=== PATIENT | female | born 1960 | race Caucasian/White ===

== ENCOUNTER 2018-05-27 08:33 | Outpatient (REF) | payer MEDICARE, MEDICAID, SELFPAY ==
[2018-05-27 21:11] LABS: Anion Gap 8.6 mmol/L (3-11); BUN 9 mg/dL (7-18); CO2 28.4 mmol/L (21.0-32.0); CREATININE 0.82 mg/dL (0.55-1.02); Calcium 9.2 mg/dL (8.5-10.1); Chloride 103 mmol/L (98-107); Cholesterol 184 mg/dL (50-200); Glucose 91 mg/dL (70-100); HDL Cholesterol 66 mg/dL (40-60); LDL CHOLESTEROL 105 mg/dL (<100); Potassium 3.8 mmol/L (3.5-5.1); Sodium 140 mmol/L (136-145); TSH (W/Ref FT4) 1.78 uIU/mL (0.358-3.74); Triglyceride 46 mg/dL (30-150)
== END 2018-05-27 08:34 ==
LOC: NCHCN 08:33
PROVIDERS: PCP Specialist/Technologist Athletic Trainer; Visit Provider Specialist/Technologist Athletic Trainer
DX: I10 Essential (primary) hypertension (principal); E03.9 Hypothyroidism, unspecified; E78.2 Mixed hyperlipidemia
CPT/HCPCS: 80048; 80061; 83721; 84443

== ENCOUNTER 2018-12-08 00:27 | Outpatient (CLI) | payer MEDICARE, MEDICAID, SELFPAY ==
--- NOTE | 2018-12-08 08:37 | DI.MAMMO_ITS ---
SYMPTOMS/DIAGNOSIS: SCREENING, Z12.31, PREVENTATIVE CARE, Z00.00 MAMMOGRAMS: Mammograms were interpreted according to the usual protocol including computer analysis with CAD system, tomosynthesis and C view imaging. The breast tissue is of moderate radiodensity. There is no evidence of a mass. There are no suspicious calcifications and there has been no significant interval change when compared with prior images. SUMMARY: No evidence of malignancy, category 1. Yearly screening mammography is recommended. Breast density category B. SA ASSESSMENT OF FINDINGS: Negative. Category 1. Patient will receive a letter notifying them of these results. BI-RADS category B. There are scattered areas of fibroglandular density.
== END 2018-12-08 00:47 ==
PROVIDERS: PCP Specialist/Technologist Athletic Trainer; Visit Provider Specialist/Technologist Athletic Trainer
DX: Z12.31 Encounter for screening mammogram for malignant neoplasm of breast (principal)
CPT/HCPCS: 77063; 77067

== ENCOUNTER 2018-12-10 10:57 | Outpatient (REF) | payer MEDICARE, MEDICAID, SELFPAY ==
--- NOTE | 2018-12-10 10:00 | PAPFT_PTH ---
PATIENT: Rea Martines LOC: [facility] U#:[id number] AGE/SX: 58/F ROOM: RE12/10/[address]: Tay Alaniz MD : 1960 BED: DIS: 12/10/2018 SPEC #: [id number] RECD: 12/10/18 13:01 STATUS: SHARATH REAmy #: [id number] KYARA: 12/10/18 10:[address]: Tay Alaniz DEPT: [facility] Cytology RECD BY: Karolyn Acosta ENTERED: 12/10/18 13:07 SP TYPE: PAPFT OTHR DR: Reji Hung Tissues: 1 - CX/ENDOCX FOR PAP SMEARS Procedures: PAP THIN PREP/UVM Screening HPV DNA PROBE Comments: [id number]
== END 2018-12-10 11:17 ==
LOC: LBN 10:57
PROVIDERS: PCP Specialist/Technologist Athletic Trainer; Visit Provider Obstetrics & Gynecology
DX: Z12.4 Encounter for screening for malignant neoplasm of cervix (principal); Z11.51 Encounter for screening for human papillomavirus (HPV)
CPT/HCPCS: 88142; 87624

== ENCOUNTER 2019-01-03 13:52 | Outpatient (REF) | payer MEDICARE, MEDICAID, SELFPAY ==
--- NOTE | 2019-01-03 13:35 | ENDO_PTH ---
PATIENT: Rea Martines LOC: [facility] U#:[id number] AGE/SX: 58/F ROOM: RE01/03/[address]: Tay Alaniz MD : 1960 BED: DIS: 01/03/2019 SPEC #: [id number] RECD: 01/03/19 17:15 STATUS: SHARATH REAmy #: [id number] KYARA: 01/03/19 13:[address]: Tay Alaniz DEPT: Surgical Specimen RECD BY: Nohemy Castillo ENTERED: 01/03/19 17:15 SP TYPE: Endo OTHR DR: Reji Hung Tissues: 1 - ENDOCERVICAL BX/CURRETTE Procedures: GROSS AND MICRO LEVEL 4 P16 IPEX Comments: [id number]
== END 2019-01-03 14:12 ==
LOC: LBN 13:52
PROVIDERS: PCP Specialist/Technologist Athletic Trainer; Visit Provider Obstetrics & Gynecology
DX: N87.0 Mild cervical dysplasia (principal); R87.610 Atypical squamous cells of undetermined significance on cytologic smear of cervix (ASC-US)
CPT/HCPCS: 88305; 88342

== ENCOUNTER 2019-04-26 15:07 | Outpatient (REF) | payer MEDICARE, MEDICAID, SELFPAY | END 2019-04-26 15:27 | LOC: NCHCN 15:07 | PROVIDERS: PCP Specialist/Technologist Athletic Trainer; Visit Provider Family Medicine | DX: R35.0 Frequency of micturition (principal) | CPT/HCPCS: 87077; 87086; 87186 ==

== ENCOUNTER 2019-05-19 09:14 | Outpatient (REF) | payer MEDICARE, MEDICAID, SELFPAY ==
[2019-05-19 21:29] LABS: Anion Gap 12.7 mmol/L (3-11); BUN 12 mg/dL (7-18); CO2 23.3 mmol/L (21.0-32.0); CREATININE 0.64 mg/dL (0.55-1.02); Calcium 9.3 mg/dL (8.5-10.1); Calculated LDL 136 mg/dL; Chloride 105 mmol/L (98-107); Cholesterol 207 mg/dL (50-200); Glucose 91 mg/dL (70-100); HDL Cholesterol 59 mg/dL (40-60); Potassium 3.9 mmol/L (3.5-5.1); Sodium 141 mmol/L (136-145); Triglyceride 62 mg/dL (30-150)
[2019-05-23 15:52] LABS: Hepatitis C Ab w Rflx HCV PCR Negative (NEGAT)
== END 2019-05-19 09:34 ==
LOC: NCHCN 09:14
PROVIDERS: PCP Specialist/Technologist Athletic Trainer; Visit Provider Specialist/Technologist Athletic Trainer
DX: I10 Essential (primary) hypertension (principal); E78.2 Mixed hyperlipidemia; Z11.59 Encounter for screening for other viral diseases; Z79.899 Other long term (current) drug therapy
CPT/HCPCS: 80048; 80061; 83721; 86803

== ENCOUNTER 2019-12-28 10:28 | Outpatient (CLI) | payer MEDICARE, MEDICAID, SELFPAY ==
[2019-12-31 10:20] LABS: SARS-CoV-2 RNA Undetected (Undetected); SARS-CoV-2 Specimen Source Nasopharynx
== END 2019-12-28 10:48 ==
PROVIDERS: PCP Specialist/Technologist Athletic Trainer; Visit Provider Physician Assistant
DX: J06.9 Acute upper respiratory infection, unspecified (principal)
CPT/HCPCS: U0003

== ENCOUNTER 2020-04-27 13:37 | Outpatient (CLI) | payer MEDICARE, MEDICAID, SELFPAY ==
--- NOTE | 2020-04-27 14:07 | DI.RAD_ITS ---
EXAM: XR FOOT LT COMPLETE CLINICAL HISTORY: LT FOOT PAIN, M79.672. TECHNIQUE: 2D digital imaging was performed. COMPARISON: No exams were available for comparison FINDINGS: BONES: No acute fracture is present. No bony destructive lesion is seen. There are mild degenerative changes. JOINTS: No dislocation present. SOFT TISSUE: Normal. IMPRESSION: Unremarkable radiographs of the left foot. DATA REPOSITORY: RADIATION DOSE DELIVERED:
== END 2020-04-27 13:57 ==
PROVIDERS: PCP Specialist/Technologist Athletic Trainer; Visit Provider Physician Assistant Medical
DX: M79.672 Pain in left foot (principal)
CPT/HCPCS: 73630

== ENCOUNTER 2020-05-07 10:58 | Outpatient (REF) | payer MEDICARE, MEDICAID, SELFPAY ==
--- NOTE | 2020-05-07 10:15 | PAPFT_PTH ---
PATIENT: Rea Martines LOC: COUNTS INCLUDE 234 BEDS AT [facility] U#:[id number] AGE/SX: 59/F ROOM: RE05/07/[address]: Irlanda Mane : 1960 BED: DIS: 05/07/2020 SPEC #: [id number] RECD: 05/08/20 12:59 STATUS: SHARATH REQ #: [id number] KYARA: 05/07/20 10:[address]: Irlanda Mane DEPT: [facility] Cytology RECD BY: Nohemy Castillo ENTERED: 05/08/20 13:00 SP TYPE: PAPFT OTHR DR: Reji Hung Tissues: 1 - CX/ENDOCX FOR PAP SMEARS Procedures: PAP THIN PREP/UVM Screening Comments: [id number]
[2020-05-07 19:13] LABS: Anion Gap 11.3 mmol/L (3-11); BUN 12 mg/dL (7-18); CO2 25.7 mmol/L (21.0-32.0); Calcium 10.4 mg/dL (8.5-10.1); Calculated LDL 148 mg/dL (<100); Chloride 105 mmol/L (98-107); Cholesterol 227 mg/dL (<200); Glucose 99 mg/dL (74-106); HDL Cholesterol 68 mg/dL (40-60); Potassium 4.1 mmol/L (3.5-5.1); Sodium 142 mmol/L (136-145); Triglyceride 58 mg/dL (<150)
== END 2020-05-07 11:18 ==
LOC: NCHCN 10:58
PROVIDERS: PCP Specialist/Technologist Athletic Trainer; Visit Provider Nurse Practitioner Family
DX: I10 Essential (primary) hypertension (principal); E78.2 Mixed hyperlipidemia; Z12.4 Encounter for screening for malignant neoplasm of cervix; R87.613 High grade squamous intraepithelial lesion on cytologic smear of cervix (HGSIL)
CPT/HCPCS: 80048; 80061; 88142

== ENCOUNTER 2020-05-25 19:03 | Outpatient (REF) | payer MEDICARE, MEDICAID, SELFPAY | END 2020-05-25 19:23 | LOC: NCHCN 19:03 | PROVIDERS: PCP Specialist/Technologist Athletic Trainer; Visit Provider Nurse Practitioner Family | DX: R30.0 Dysuria (principal) | CPT/HCPCS: 87077; 87086; 87186 ==

== ENCOUNTER 2020-06-06 12:38 | Outpatient (REF) | payer MEDICARE, MEDICAID, SELFPAY ==
[2020-06-06 21:01] LABS: Creatine Kinase 61 U/L (26-192)
== END 2020-06-06 12:58 ==
LOC: NCHCN 12:38
PROVIDERS: PCP Specialist/Technologist Athletic Trainer; Visit Provider Nurse Practitioner Family
DX: E78.2 Mixed hyperlipidemia (principal); N39.0 Urinary tract infection, site not specified
CPT/HCPCS: 82550; 87077; 87086; 87186

== ENCOUNTER 2020-06-26 11:56 | Outpatient (REF) | payer MEDICARE, MEDICAID, SELFPAY ==
--- NOTE | 2020-06-26 11:00 | CER_PTH ---
PATIENT: Rea Martines LOC: [facility] U#:[id number] AGE/SX: 59/F ROOM: RE06/26/[address]: Tay Alaniz MD : 1960 BED: DIS: 06/26/2020 SPEC #: [id number] RECD: 06/26/20 12:45 STATUS: SHARATH REAmy #: [id number] KYARA: 06/26/20 11:[address]: Tay Alaniz DEPT: Surgical Specimen RECD BY: Nohemy Castillo ENTERED: 06/26/20 12:46 SP TYPE: CER OTHR DR: Reji Hung Tissues: 1 - CERVICAL BIOPSY 2 - CERVICAL BIOPSY 3 - CERVICAL BIOPSY 4 - CERVICAL BIOPSY 5 - ENDOCERVICAL BX/CURRETTE Procedures: GROSS AND MICRO LEVEL 4 IMMUNOPEROXIDASE STAIN P16 IPEX Comments: [id number]
== END 2020-06-26 12:16 ==
LOC: LBN 11:56
PROVIDERS: PCP Specialist/Technologist Athletic Trainer; Visit Provider Obstetrics & Gynecology
DX: N87.0 Mild cervical dysplasia (principal); N87.1 Moderate cervical dysplasia; Z87.42 Personal history of other diseases of the female genital tract; Z90.711 Acquired absence of uterus with remaining cervical stump
CPT/HCPCS: 88305; 88342; 88361

== ENCOUNTER 2020-07-16 13:54 | Outpatient (REF) | payer MEDICARE, MEDICAID, SELFPAY ==
--- NOTE | 2020-07-16 13:35 | CER_PTH ---
PATIENT: Rea Martines LOC: [facility] U#:[id number] AGE/SX: 59/F ROOM: RE07/16/[address]: Tay Alaniz MD : 1960 BED: DIS: 07/16/2020 SPEC #: [id number] RECD: 07/16/20 17:30 STATUS: SHARATH REQ #: [id number] KYARA: 07/16/20 13:[address]: Tay Alaniz DEPT: Surgical Specimen RECD BY: Nohemy Castillo ENTERED: 07/16/20 17:31 SP TYPE: CER OTHR DR: Reji Hung Tissues: 1 - CERVICAL BIOPSY 2 - CERVICAL BIOPSY 3 - ENDOCERVICAL BX/CURRETTE 4 - ENDOCERVICAL BX/CURRETTE Procedures: GROSS AND MICRO LEVEL 4 GROSS AND MICRO LEVEL 5 Comments: [id number]
== END 2020-07-16 14:14 ==
LOC: LBN 13:54
PROVIDERS: PCP Specialist/Technologist Athletic Trainer; Visit Provider Obstetrics & Gynecology
DX: N87.1 Moderate cervical dysplasia (principal)
CPT/HCPCS: 88305; 88307

== ENCOUNTER 2020-11-26 15:16 | Outpatient (REF) | payer MEDICARE, MEDICAID, SELFPAY ==
[2020-11-26 15:45] LABS: Calculated LDL 201 mg/dL (<100); Cholesterol 276 mg/dL (<200); HDL Cholesterol 42 mg/dL (40-60); Triglyceride 165 mg/dL (<150)
== END 2020-11-26 15:17 | disposition home or self-care (01) ==
LOC: NCHCN 15:16
PROVIDERS: PCP Specialist/Technologist Athletic Trainer; Visit Provider Nurse Practitioner Family
DX: E78.2 Mixed hyperlipidemia (principal)
CPT/HCPCS: 80061

== ENCOUNTER 2020-12-05 02:16 | Outpatient (CLI) | payer MEDICARE, MEDICAID, SELFPAY ==
--- NOTE | 2020-12-05 11:10 | DI.MAMMO_ITS ---
EXAM: MG MAMMO SCREENING CLINICAL HISTORY: SCREENING, Z12.31,PREVENTIVE HEALTH CARE,Z00.00 TECHNIQUE: Bilateral full field digital CC and MLO mammographic images were obtained with 3D tomosyn thesis and utilizing computer aided detection (CAD). COMPARISON: Available for comparison. FINDINGS: Masses/Architectural Distortion: None seen. There is a stable nodule at the 6 o'clock position of the left breast. Microcalcifications: No suspicious pleomorphic-type are seen. Skin Thickening/Nipple Retraction: None. IMPRESSION: 1. No significant interval change with no specific features of malignancy noted. 2. Unless there is more urgent need, screening mammography is recommended, as per [employer] guidelines. BI-RADS Category 1 - Negative Breast Density - Category B - Scattered areas of fibroglandular density Breast density category C or D implies that the patient has dense breast tissue. Dense breast tissue is very common and is not abnormal but dense breast tissue can make it harder to find cancer on a ma mmogram. Also, dense breast tissue may increase their breast cancer risk. This information about the result of the mammogram report was provided to the patient to raise their awareness. Use this report when you speak with the patient about their risks for breast cancer, which includes their family hist ory. At that time, you may recommend for more screening tests (Ultrasound or MRI) as they might be us eful based on their risk. A negative radiographic report should not delay biopsy if a dominant or clinically suspicious mass is present. Up to ten percent of cancers are not identified on mammography. A negative report may reinforce clinical impression. Adenosis and dense breasts may obscure an underlying neoplasm. False positive reports average 6 to 10%. Patient will receive a letter notifying them of these results.
== END 2020-12-05 02:36 ==
PROVIDERS: PCP Nurse Practitioner Family; Visit Provider Nurse Practitioner Family
DX: Z12.31 Encounter for screening mammogram for malignant neoplasm of breast (principal)
CPT/HCPCS: 77063; 77067

== ENCOUNTER 2021-02-06 09:04 | Outpatient (REF) | payer MEDICARE, MEDICAID, SELFPAY ==
[2021-02-06 16:34] LABS: Calculated LDL 93 mg/dL (<100); Cholesterol 164 mg/dL (<200); HDL Cholesterol 51 mg/dL (40-60); Triglyceride 101 mg/dL (<150)
== END 2021-02-06 09:05 | disposition home or self-care (01) ==
LOC: NCHCN 09:04
PROVIDERS: PCP Nurse Practitioner Family; Visit Provider Nurse Practitioner Family
DX: E78.2 Mixed hyperlipidemia (principal)
CPT/HCPCS: 80061

== ENCOUNTER 2021-05-27 01:41 | Outpatient (CLI) | payer OTHER, MEDICARE, MEDICAID, SELFPAY ==
--- NOTE | 2021-05-27 | DI.RAD_ITS ---
Exam(s) XR LUMBAR SPINE AP, LAT EXAM: XR LUMBAR SPINE AP, LAT CLINICAL HISTORY: DISABILITY DETERMINATION,LOW BACK PAIN, ,Z02.71. TECHNIQUE: 2D digital imaging was performed. COMPARISON: No exams were available for comparison FINDINGS: BONES: No fracture or destructive lesion. Vertebral bodies are unremarkable. No facet hypertrophy martín ntified. DISKS: At L5-S1 there is disc space narrowing and endplate osteophytes. Endplate osteophytes are see n at L3-4 and L4-L5. ALIGNMENT: Lumbar spinal alignment is within normal limits. SOFT TISSUE: Atherosclerosis. There is a nerve stimulator device in place. IMPRESSION: Mild degenerative changes are seen in the lower lumbar spine as described. DATA REPOSITORY: RADIATION DOSE DELIVERED:
--- NOTE | 2021-05-27 | DI.RAD_ITS ---
Exam(s) XR CERVICAL SP OJEDA TRAUMA 2-3V EXAM: XR CERVICAL SP OJEDA TRAUMA 2-3V CLINICAL HISTORY: NECK PAIN, DISABILITY DETERIMNATION.Z02.71. TECHNIQUE: 2D digital imaging was performed. COMPARISON: No exams were available for comparison FINDINGS: The odontoid is intact. The lateral masses are well aligned. There is normal alignment of the cervi naida spine. Endplate osteophytes are seen at C3-C4, C5-C6 and C6-C7. There is disc space narrowing a t C5-C6. No acute fracture or subluxation is seen. The bones are normally mineralized. The soft ti ssues are unremarkable. IMPRESSION: Kdlw-pf-gohdrcfh degenerative changes in the cervical spine. DATA REPOSITORY: RADIATION DOSE DELIVERED:
--- NOTE | 2021-05-27 | DI.RAD_ITS ---
Exam(s) XR THORACIC SPINE COMPLETE EXAM: XR THORACIC SPINE COMPLETE CLINICAL HISTORY: MID BACK PAIN, DISABILITY DETERMINATION,Z02.71. TECHNIQUE: 2D digital imaging was performed. COMPARISON: No exams were available for comparison FINDINGS: BONES: There is no fracture or destructive lesion. The vertebral bodies and posterior elements are un remarkable. DISKS:Alignment is within normal limits. There is disc space narrowing and endplate osteophytes at mu ltiple levels throughout the thoracic spine. SOFT TISSUE: Visualized lungs are clear. A nerve stimulator device is seen. Its most superior aspect is at the T8 level. IMPRESSION: Mild degenerative changes in the thoracic spine. DATA REPOSITORY: RADIATION DOSE DELIVERED:
== END 2021-05-27 02:01 ==
PROVIDERS: PCP Nurse Practitioner Family; Visit Provider Pediatrics Pediatric Rheumatology
DX: Z02.71 Encounter for disability determination (principal); M51.34 Other intervertebral disc degeneration, thoracic region; M51.36 Other intervertebral disc degeneration, lumbar region; I70.8 Atherosclerosis of other arteries; M50.30 Other cervical disc degeneration, unspecified cervical region
CPT/HCPCS: 72040; 72072; 72100

== ENCOUNTER 2021-06-06 15:55 | Outpatient (REF) | payer MEDICARE, MEDICAID, SELFPAY ==
--- NOTE | 2021-06-06 14:30 | PAPFT_PTH ---
PATIENT: Rea Martines LOC: [facility] U#:[id number] AGE/SX: 60/F ROOM: RE06/06/[address]: FEI Smiley : 1960 BED: DIS: 06/06/2021 SPEC #: [id number] RECD: 06/06/21 18:26 STATUS: SHARATH REAmy #: [id number] KYARA: 06/06/21 14:[address]: Candelaria Ocasio DEPT: [facility] Cytology RECD BY: Nohemy Castillo ENTERED: 06/06/21 18:26 SP TYPE: PAPFT DIVINA DR: Irlanda Mane Tissues: 1 - CX/ENDOCX FOR PAP SMEARS Procedures: PAP THIN PREP/UVM Screening HPV DNA PROBE Comments: [id number]
== END 2021-06-06 15:56 | disposition home or self-care (01) ==
LOC: LBN 15:55
PROVIDERS: PCP Nurse Practitioner Family; Visit Provider Nurse Practitioner Family
DX: Z12.4 Encounter for screening for malignant neoplasm of cervix (principal); Z87.410 Personal history of cervical dysplasia; Z11.51 Encounter for screening for human papillomavirus (HPV); Z01.419 Encounter for gynecological examination (general) (routine) without abnormal findings; Z86.001 Personal history of in-situ neoplasm of cervix uteri; Z90.711 Acquired absence of uterus with remaining cervical stump
CPT/HCPCS: 88142; 87624

== ENCOUNTER 2021-06-27 15:26 | Outpatient (REF) | payer MEDICARE, MEDICAID, SELFPAY ==
--- NOTE | 2021-06-27 15:30 | SKI_PTH ---
PATIENT: Rea Martines LOC: [facility] U#:[id number] AGE/SX: 60/F ROOM: RE06/27/[address]: Arcelia Cabello DO : 1960 BED: DIS: 06/27/2021 SPEC #: [id number] RECD: 06/27/21 16:41 STATUS: SHARATH REQ #: [id number] KYARA: 06/27/21 15:[address]: Arcelia Cabello DEPT: Surgical Specimen RECD BY: Nohemy Castillo ENTERED: 06/27/21 16:43 SP TYPE: ARLEEN MURCIA DR: Irlanda Mane Tissues: 1 - SKIN BIOPSY(SHAVE/PUNCH) Procedures: GROSS AND MICRO LEVEL 4 P16 IPEX Comments: [id number]
== END 2021-06-27 15:27 | disposition home or self-care (01) ==
LOC: LBN 15:26
PROVIDERS: PCP Nurse Practitioner Family; Visit Provider Obstetrics & Gynecology
DX: R23.4 Changes in skin texture (principal); D48.5 Neoplasm of uncertain behavior of skin
CPT/HCPCS: 88305; 88342

== ENCOUNTER 2021-08-05 03:49 | Outpatient (CLI) | payer MEDICARE, MEDICAID, SELFPAY ==
[2021-08-05 10:06] LABS: Abs Immature Grans 0.04 10^3/uL (0.0-0.06); Absolute Basophil Count 0.07 10^3/uL (0.0-0.2); Absolute Eosinophil Count 0.11 10^3/uL (0.0-0.7); Absolute Lymphocyte Count 3.65 10^3/uL (1.2-3.4); Absolute Monocyte Count 1.13 10^3/uL (0.1-0.8); Basophils % 0.6; HCT 47.5 % (36.0-46.0); HGB 15.5 g/dL (11.2-15.7); Immature Grans % 0.4; MCH 28.8 pg (27.0-33.0); MCHC 32.6 % (32.0-36.0); MCV 88.3 fL (80-95); Monocytes % 9.9; Neutrophils % 56.1; Nucleated RBC 0 %; Platelet Count 285 10^3/uL (130-400); RBC 5.38 10^6/uL (3.93-5.22); RDW 13.6 % (11.7-14.6); RDW-SD 44.5 fL
[2021-08-05 11:41] LABS: Source Nasal/Nares
[2021-08-05 15:51] LABS: COVID-19 PCR Negative (Negative)
== END 2021-08-05 03:50 | disposition home or self-care (01) ==
LOC: LBO 03:49
PROVIDERS: PCP Nurse Practitioner Family; Visit Provider Obstetrics & Gynecology
DX: Z20.822 Contact with and (suspected) exposure to COVID-19 (principal); Z01.818 Encounter for other preprocedural examination
CPT/HCPCS: 36415; 86850; 86900; 86901; 87635; 85025

== ENCOUNTER 2021-08-07 07:10 | Day surgery (SDC) | payer MEDICARE, MEDICAID, SELFPAY ==
[2021-08-07 07:35] VITALS: BP 144/93; PULSE 66; RESP 16; TEMP 36.3; O2SAT 98
--- NOTE | 2021-08-07 07:51 | W.ANESPRE ---
General Info Date of Service Date Performed: 08/07/21 Height: 5 ft 3.5 in Weight: 87.2 kg Body Mass Index (BMI): 33.5 Surgical Procedure: Operation Date: 08/07/21 09:10 Proposed Procedures Side Surgeon p wide local excision of vulval lesion Arcelia Cabello DO Meds Allergies and Home Medications Allergies Allergy/AdvReac Type Severity Reaction Status Date / Time venom-honey bee Allergy Severe Anaphylaxsi Unverified 08/07/21 07:44 s shellfish derived Allergy Intermediate Skin Rash Unverified 08/07/21 07:44 Sulfa (Sulfonamide Allergy Intermediate Skin Rash Unverified 08/07/21 07:44 Antibiotics) sulfite Allergy Intermediate Skin Rash Unverified 08/07/21 07:44 contrast dye Allergy Intermediate Skin Rash Uncoded 08/07/21 07:44 Home Medication Medication Instructions Recorded cyclobenzaprine 10 mg PO DAILY 09/14/14 epinephrine [Epipen 2-Ollie] 0.3 mg IM ONCE 09/14/14 lisinopril 40 mg PO DAILY tab-cap 09/14/14 trazodone 50 mg PO HS 09/14/14 duloxetine 60 mg PO DAILY 10/15/14 clonidine HCl 2 tab PO BID tab-cap 11/10/14 Medical Marijuana 2 gm PRN 05/18/17 afkwssiivcoh-adye-goaca acid 1 tab-cap PO DAILY tab-cap 05/18/17 [Daily Multiple Tablet] Current Visit Medications: Current Medications Generic Name Dose Route Start Last Admin Trade Name Freq PRN Reason Stop Dose Admin Ringer's Solution 1,000 mls @ 125 mls/hr 08/07/21 06:00 IV 08/27/21 05:59 INFUSION FILIPE IV Miscellaneous Supplies 1 each 08/07/21 06:00 Iv Access IV 08/27/21 05:59 DIRECTED FILIPE Sodium Chloride 0 ml 08/07/21 06:00 Normal Saline Flush 10 Ml Syr IV 08/27/21 05:59 PRN PRN Sodium Chloride 0 ml 08/07/21 06:00 Normal Saline 10 Ml Vial IJ 08/27/21 05:59 DIRECTED PRN Sterile Water 0 ml 08/07/21 06:00 Water,Injection,Sterile 10 Ml Vial IJ 08/27/21 05:59 DIRECTED PRN PFSH Active Problems Active Problems: Problem Status Onset Code Hypothyroid 09/14/14 E03.9 Hypertension 09/14/14 I10 Hyperlipidemia 09/14/14 E78.5 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 states is currently is not working GERD (gastroesophageal reflux disease) Pt. denies having this Hypertension Hypothyroidism Pt. denies having this Insomnia Lumbar post-laminectomy syndrome Mixed hyperlipidemia Spondylosis of lumbar spine Tobacco abuse Unsteady gait ambulates with walker Vulvar lesion Surgical History Surgical History Hysterectomy, Laparoscopic Supracervical Ligation of fallopian tube Tobacco Smoking/Tobacco Use Status: Current every day Tobacco Type: cigarettes Smoking cigarettes per day: 10 Alcohol Alcohol Intake: current Alcohol intake frequency: holidays/special occasions only Substance Use Substance use: Daily Substance use type: marijuana Details: smoked marijuana yesterday 08.06.21 Vital Signs and Lab Results Vital Signs Most Recent Vital Signs in EMR: Most Recent Vital Signs Temp Pulse Resp BP Pulse Ox 36.3 C L 66 16 144/93 H 98 08/07/21 07:35 08/07/21 07:35 08/07/21 07:35 08/07/21 07:35 08/07/21 07:35 Lab Results Blood Type / Crossmatch: Patient ABO/Rh O Positive 08/05/21 09:56 08/05/21 Antibody Screen NEGATIVE 08/05/21 09:56 08/05/21 Complete Blood Count: White Blood Count 11.40 10^3/uL (4.4-10.8) H 08/05/21 09:56 08/05/21 Red Blood Count 5.38 10^6/uL (3.93-5.22) H 08/05/21 09:56 08/05/21 Hemoglobin 15.5 g/dL (11.2-15.7) 08/05/21 09:56 08/05/21 Hematocrit 47.5 % (36.0-46.0) H 08/05/21 09:56 08/05/21 Platelet Count 285 10^3/uL (130-400) 08/05/21 09:56 08/05/21 Complete Metabolic Panel: No Data to Display Liver Function Panel: No Data to Display Coagulation Panel: No Data to Display Cardiac Panel: No Data to Display Arterial Blood Gas: No Data to Display Venous Blood Gas: No Data to Display Pancreas Panel: No Data to Display Thyroid Panel: No Data to Display Infectious Disease: Coronavirus (COVID-19)(PCR) Negative (Negative) 08/05/21 11:10 08/05/21 Coronavirus 2019 Source Nasal/Nares 08/05/21 11:10 08/05/21 Blood Cultures: No Data to Display Toxicology Panel: No Data to Display Imaging and Studies Imaging and Studies Echocardiogram Summary: 10/2014 SUMMARY: Normal left ventricle, ejection fraction 60-65%, mild left ventricular hypertrophy, normal right ventricle, no significant valvular abnormality, borderline pulmonary artery pressure, normal atrial, no effusion Anesthesia Assessment and Plan Anesthesia History Personal History: No History of Anesthesia Complications Family History: No Family History of Anesthesia Complications Exercise Tolerance Exercise Tolerance: Metabolic Equivalents>4 Pertinent Negatives Pertinent Negatives: No Symptoms of GERD, No Major Cardiovascular Symptoms or Complaints, No Major Pulmonary Symptoms or Complaints and No History of CVA/TIA Cardiac & Pulmonary Exam Cardiac Exam: Normal S1/S2 Heart Sounds Pulmonary Exam: Clear Bilateral Breath Sounds Implantable Cardiac Device Does patient have a Pacemaker or an ICD?: No Airway Exam Known Difficult Airway: No Mallampati Class: 2 Mouth Opening: Normal (> 3cm) Thyromental Distance: Greater than 3 cm Neck Range of Motion: Full ROM Neck Circumference: Normal Teeth Condition: Normal Dentition ASA Classification ASA Score: ASA 2 Emergency Case?: No NPO Status NPO Status: NPO Clears >2 hours, Solids >8 hours Anesthesia Plan Resuscitation Status: Full Code Anesthesia Technique: General Anesthesia Airway Planned: Natural Airway Monitors Used: Standard Monitors Preoperative Comments:: 60 yo female for removal of vulvar lesion. Sig PMHx: hypothyroid (pt denies, states that she has asked her PCP to take it off her list), HTN (lisinopril), fibromyalgia/chronic pain (trazadone, cyclobenzaprine, cannabis), smoker, cannabis, is on clonidine and unsure if for pain or for HTN. Plan: GA/no-airway vs LMA. discussed positioning r/t to her chronic back pain. States that she can handle lithotomy in the office.
[2021-08-07 08:06] VITALS: BMI 33.5
[2021-08-07] MEDS: Lactated Ringers 1,000 ML 125 ML IV (08:08)
--- NOTE | 2021-08-07 09:40 | VUL_PTH ---
PATIENT: Rea Martines LOC: [facility] U#:[id number] AGE/SX: 60/F ROOM: RE08/07/[address]: Arcelia Cabello DO : 1960 BED: DIS: 08/07/2021 SPEC #: [id number] RECD: 08/07/21 13:02 STATUS: SHARATH RE #: [id number] KYARA: 08/07/21 09:[address]: Arcelia Cabello DEPT: Surgical Specimen RECD BY: Nohemy Castillo ENTERED: 08/07/21 13:02 SP TYPE: VUL OTHR DR: Irlanda Mane Tissues: 1 - VULVA BIOPSY Procedures: GROSS AND MICRO LEVEL 4 IMMUNOPEROXIDASE STAIN P16 IPEX Comments: [id number]
[2021-08-07] MEDS: Bupivacaine 0.25% Pres-Free 30 ML VIAL (09:44)
[2021-08-07 09:56] VITALS: BP 88/51; PULSE 55; RESP 14; TEMP 36.6; O2SAT 96
--- NOTE | 2021-08-07 09:56 | W.PM.OP ---
Date of service: 08/07/21 Time of Service: 09:56 Operative Note Operative Note DATE OF PROCEDURE: 08/07/21 PRE-OP DIAGNOSIS: Vulvar lesion with atypia POST-OP DIAGNOSIS: same PROCEDURE: Excision of vulvar lesion SURGEON: Arcelia Cabello ANESTHESIA TYPE: Local By Surgeon and General:No Airway Refer to Anesthesia Record ESTIMATED BLOOD LOSS: 5 PATHOLOGY: other (Vulvar lesion) COMPLICATIONS: None Patient was transported to: PACU Patient's condition: stable Indications: 2 x 3 cm pigmented lesion on the perineum, near to the left crural fold. Biopsy with atypia Findings: 2 x 3 cm pigmented lesion Procedure Description: Patient was taken the operating suite with an IV running where she put was placed in the supine position. Anesthesia administered and she was then placed in the modified dorsolithotomy position in yellowfin stirrups and prepped and draped in the usual sterile fashion. Straight catheterization was performed for scant urine. The area was identified at the left crural fold in the area of her previous biopsy. This area was infiltrated with quarter percent Marcaine. The lesion was elevated and excised sharply in elliptical fashion. Tissue was sent for pathology. The elliptical incision was closed using 4-0 Monocryl suture in a simple interrupted fashion and found to be hemostatic. EBL 5 mL Complications: None apparent Pathology: Vulvar lesion for examination
[2021-08-07 10:00] VITALS: BP 92/48
[2021-08-07 10:08] VITALS: BP 95/57
[2021-08-07 10:32] VITALS: BP 108/69; PULSE 56; RESP 16; TEMP 36.1; O2SAT 97
--- NOTE | 2021-08-07 10:55 | W.ANESPOSTOP ---
Postoperative Evaluation Date, Time and Location Date Performed: 08/07/21 Time Performed: 10:55 Patient Location: Day Surgery Unit Vital Signs Most Recent Imported Vital Signs: Most Recent Vital Signs Temp Pulse Resp BP Pulse Ox 36.1 C L 56 L 16 108/69 97 08/07/21 10:32 08/07/21 10:32 08/07/21 10:32 08/07/21 10:32 08/07/21 10:32 Pain Score Most Recent Pain Score: Most Recent Pain Score Pain Level 3 08/07/21 10:32 Assessment Mental Status: Awake (Alert & Oriented to Patient Baseline) Airway and Respiratory Function: Patent airway with normal (patient baseline) respiratory exam Cardiovascular Function: Hemodynamically Stable Hydration Status: Adequately Hydrated Nausea & Vomiting: No Nausea or Vomiting Pain: Pain is tolerable per patient Peripheral Nerve Block: Patient did not receive a nerve block
== END 2021-08-07 10:53 | disposition home or self-care (01) ==
PROVIDERS: PCP Nurse Practitioner Family; Visit Provider Obstetrics & Gynecology
PROC: (CPT 11623; principal; 2021-08-07 09:00)
DX: N90.0 Mild vulvar dysplasia (principal); N90.89 Other specified noninflammatory disorders of vulva and perineum; I10 Essential (primary) hypertension; K21.9 Gastro-esophageal reflux disease without esophagitis; E03.9 Hypothyroidism, unspecified; F17.210 Nicotine dependence, cigarettes, uncomplicated
CPT/HCPCS: 11623; 88305; 88342; 88361; J1100; J2405; J2704

== ENCOUNTER 2021-08-20 12:00 | Outpatient (REF) | payer MEDICARE, MEDICAID, SELFPAY | END 2021-08-21 12:24 | disposition home or self-care (01) | LOC: LBN 12:00 | PROVIDERS: PCP Nurse Practitioner Family; Visit Provider Obstetrics & Gynecology | DX: R35.0 Frequency of micturition (principal) | CPT/HCPCS: 87077; 87086; 87186 ==

== ENCOUNTER → 2022-01-31 01:22 | Outpatient (CLI) | payer MEDICARE, MEDICAID, SELFPAY ==
--- NOTE | 2022-01-31 10:00 | DI.DEXA_ITS ---
Exam(s) XR DEXA BONE DENSITY W/WO VIVIANA EXAM: XR DEXA BONE DENSITY W/WO VIVIANA CLINICAL HISTORY: MENOPAUSAL STATE, Z78.0; UNSTEAD GAIT, R26.81; H/O TOBACCO ABUSE, Z87.891 TECHNIQUE: Routine DEXA evaluation of the lumbar spine, hip, or forearm. COMPARISON: CR XR LUMBAR SPINE AP, LAT from 05/27/2021 FINDINGS: Performed on a Hologic unit. Lateral image: No compression fracture evident. Lumbar Spine total T-score: 2.0 Hip total T-score:0.3 Independent reading at the level of the femoral neck yields at T-score of -0.5. Forearm total T-score: -0.3 IMPRESSION: Bone mineral density measures in the normal range. Fracture risk is low. Note: Any spine fracture indicates 5x risk for subsequent spine fracture and 2x risk for subsequent h ip fracture. World Health Organization criteria for BMD interpretation classify patients: Normal...... T- Score at or above -1.0 Osteopenic... T- Score between -1.0 and -2.5 Osteoporosis... T-Score at or below -2.5
--- NOTE | 2022-01-31 10:30 | DI.CTLCSR_ITS ---
Exam(s) CT CHEST LUNG CANCER SCREEN EXAM: CT CHEST LUNG CANCER SCREEN CLINICAL HISTORY: CIGARETTE SMOKER, F17.210. TECHNIQUE: Imaging Protocol: Low Dose Technique CONTRAST MATERIAL: None COMPARISON: No exams were available for comparison FINDINGS: CHEST: LUNGS: There are no ominous pulmonary nodules. There are no confluent infiltrates. No pleural effusi ons. MEDIASTINUM: There is no obvious hilar nor mediastinal adenopathy. CARDIAC: Heart size is normal. There is no pericardial effusion.Caliber of the thoracic aorta is wit hin normal limits. OTHER: Epidural electrode incidentally noted. OSSEOUS: No significant osseous lesions.No compression fractures in thoracic. IMPRESSION: 1. No significant pulmonary nodules nor other significant focal lung findings. 2. No pleural effusions nor obvious intrathoracic adenopathy 3. Lung RADS Cat 1 - Negative: No nodules and definitely benign nodules Lung-RADS 1.0 CATEGORIES: Category 0 - Prior chest CT exam(s) being located for comparison. Category 1 - Annual screening in 12 months. No nodules or definitely benign nodules. Category 2 - Annual screening in 12 months. Benign appearance. Nodules with low likelihood of becomin g active cancer. Category 3 - 6-month follow-up. Probably benign. Short-term follow-up suggested. Nodules with low lik elihood of becoming active cancer. Category 4A - 3-month follow-up and CT/PET if >8 mm in size. Suspicious finding. Findings which requi re additional testing. Category 4B - Findings which require additional testing and tissue sampling. Category 4X - Category 3 or 4 nodules with additional features or imaging findings that increases the suspicion of malignancy. Modifier S- Potentially clinically significant findings (non lung cancer) RADIATION DOSE DELIVERED: 72.87mGy.cm Total DLP 1.84mGyCTDIvol DATA REPOSITORY: All CT scans at this facility are submitted to the National Radiology Data Registry (NRDR) Dose Index Registry (DIR) with the [employer] (ACR). RADIATION OPTIMIZATION: All CT scans at this facility use at least one of these dose optimization te chniques: automated exposure control; mA and/or kV adjustment per patient size (includes targeted exa ms where dose is matched to clinical indication); or iterative reconstruction.
== END ==
PROVIDERS: PCP Nurse Practitioner Family; Visit Provider Nurse Practitioner Family
DX: Z12.2 Encounter for screening for malignant neoplasm of respiratory organs (principal); F17.210 Nicotine dependence, cigarettes, uncomplicated; R26.81 Unsteadiness on feet; Z13.820 Encounter for screening for osteoporosis; Z78.0 Asymptomatic menopausal state
CPT/HCPCS: 71271; 77080